=== PATIENT | female | born 1990 | race Caucasian/White ===

== ENCOUNTER 2016-11-13 17:46 | Emergency (ER) | payer MEDICAID ==
--- NOTE | 2016-11-13 18:11 | ER Document Report ---
ED Medical Screen (RME) - General Stated Complaint: CHEST PAIN,DIFFICULTY BREATHING Mode of Arrival: Wheelchair Information source: Patient Notes: Patient presents emergency department reports it feels like an elephant sitting on her chest that started this afternoon approximately 1500. Patient has a history of spontaneous pneumothorax. Patient is currently taking Bactrim for folliculitis. Reports diarrhea since starting to take that. Denies fever vomiting. denies cp, reports only hurts when she takes a deep breath. I have greeted and performed a rapid initial assessment of this patient. A comprehensive ED assessment and evaluation of the patient, analysis of test results and completion of the medical decision making process will be conducted by additional ED providers. TRAVEL OUTSIDE OF THE [place] IN LAST 30 DAYS: No - Related Data Allergies/Adverse Reactions: amoxicillin [Amoxicillin] Allergy (Verified 10/18/15 13:15) hydrocodone bitartrate [From Vicoprofen] Allergy (Verified 10/18/15 13:15) ibuprofen [From Vicoprofen] Allergy (Verified 10/18/15 13:15) latex Allergy (Verified 10/18/15 13:15) Penicillins Allergy (Verified 10/18/15 13:15) acetaminophen [From Tylenol] Adverse Reaction (Verified 10/18/15 13:15) Past Medical History - Social History Family history: Reviewed & Not Pertinent Renal/ Medical History: Reports: Hx Kidney Stones Psychiatric Medical History: Reports: Hx Anxiety, Hx Bipolar Disorder, Hx Depression Traumatic Medical History: Reports: Hx Pneumothorax Past Surgical History: Reports: Hx Section - Immunizations Immunizations up to date: Yes Hx Diphtheria, Pertussis, Tetanus Vaccination: No Physical Exam - Vital signs Vitals: Temp Pulse Resp BP Pulse Ox 98.5 F 84 14 110/73 100 11/13/16 17:52 11/13/16 17:52 11/13/16 17:52 11/13/16 17:52 11/13/16 17:52 Course - Vital Signs Vital signs: Temp Pulse Resp BP Pulse Ox 98.5 F 84 14 110/73 100 11/13/16 17:52 11/13/16 17:52 11/13/16 17:52 11/13/16 17:52 11/13/16 17:52
[2016-11-13] MEDS ORDERED: OXYCODONE-ACETAMINOPHEN 5-325 MG TABLET PO ONE (22:07)
[2016-11-13 22:08] VITALS: BP 116/81
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
== END 2016-11-13 22:12 | disposition home or self-care (01) ==
LOC: ER 17:46
DX: R07.1 Chest pain on breathing (principal); Z87.09 Personal history of other diseases of the respiratory system; Z88.0 Allergy status to penicillin; Z88.5 Allergy status to narcotic agent; Z88.6 Allergy status to analgesic agent; Z91.040 Latex allergy status; Z87.891 Personal history of nicotine dependence
CPT/HCPCS: 71020; 99285

== ENCOUNTER → 2017-01-19 | Outpatient (CLI) | payer MEDICAID ==
--- NOTE | 2017-01-19 11:37 | RADIOLOGY REPORT (SQ) ---
EXAM DESCRIPTION: CT CHEST WITHOUT COMPLETED DATE/TIME: 01/19/2017 11:08 am REASON FOR STUDY: CHEST PAIN R07.89 OTHER CHEST PAIN COMPARISON: Numerous, the most recent 06/15/2016 which was negative. TECHNIQUE: CT scan performed of the chest without intravenous contrast. Images reviewed with lung, soft tissue and bone windows. Reconstructed coronal and sagittal MPR images reviewed. All images st ored on PACS. All CT scanners at this facility use dose modulation, iterative reconstruction, and/or weight based d osing when appropriate to reduce radiation dose to as low as reasonably achievable (ALARA). [facility]: Dose Right [facility]: CareDose [facility]: Dose Right [facility]: Teradose 4D [facility]: [facility] RADIATION DOSE: 2.80 mGy. LIMITATIONS: No technical limitations. FINDINGS: LUNGS AND PLEURA: Stable scarring in the left apex. No effusions. HILAR AND MEDIASTINAL STRUCTURES: No identified masses or abnormal nodes. No obvious aneurysm. HEART AND VASCULAR STRUCTURES: No aneurysm. No pericardial effusion. UPPER ABDOMEN: Bilateral renal calculi. THYROID AND OTHER SOFT TISSUES: No masses. No adenopathy. BONES: No significant finding. HARDWARE: None in the chest. OTHER: No other significant findings. IMPRESSION: No acute findings in the chest. TECHNICAL DOCUMENTATION: JOB ID: [id number] Quality ID # [id number]: Final reports with documentation of one or more dose reduction techniques (e.g., Au tomated exposure control, adjustment of the mA and/or kV according to patient size, use of iterative reconstruction technique) 2010 [employer]- All Rights Reserved
== END ==
LOC: RAD 10:55
PROVIDERS: ATTEND Nurse Practitioner Family
DX: R07.89 Other chest pain (principal)
CPT/HCPCS: 71250

== ENCOUNTER 2020-04-06 12:23 | Emergency (ER) | payer OTHER, MEDICAID ==
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
[2020-04-06 13:11] LABS: APPEARANCE,URINE SLIGHTLY-CLOUDY; BILIRUBIN,URINE NEGATIVE (NEGATIVE); COLOR,URINE YELLOW; GLUCOSE, URINE NEGATIVE (NEGATIVE); KETONES,URINE TRACE mg/dL (NEGATIVE); LEUKOCYTE ESTERASE,URINE NEGATIVE (NEGATIVE); NITRITE,URINE NEGATIVE (NEGATIVE); PROTEIN,URINE 30 mg/dL (NEGATIVE); URINE SPECIFIC GRAVITY 1.025
[2020-04-06 13:22] LABS: URINE AMPHETAMINES SCREEN NEGATIVE; URINE BARBITURATES SCREEN NEGATIVE; URINE BENZODIAZEPINES SCREEN NEGATIVE; URINE COCAINE SCREEN NEGATIVE; URINE MARIJUANA (THC) SCREEN NEGATIVE; URINE METHADONE SCREEN NEGATIVE; URINE PHENCYCLIDINE SCREEN NEGATIVE
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
[2020-04-06] MEDS ORDERED: ONDANSETRON 4 MG TAB.RAPDIS PO ONE (13:51)
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
[2020-04-06 14:52] VITALS: BP 112/80
== END 2020-04-06 14:51 | disposition home or self-care (01) ==
LOC: ER 12:23
DX: S16.1XXA Strain of muscle, fascia and tendon at neck level, initial encounter (principal); S80.02XA Contusion of left knee, initial encounter; S70.01XA Contusion of right hip, initial encounter; R51 Headache; M54.5 Low back pain; R11.2 Nausea with vomiting, unspecified; V49.60XA Unspecified car occupant injured in collision with unspecified motor vehicles in traffic accident, initial encounter; F32.9 Major depressive disorder, single episode, unspecified; F41.9 Anxiety disorder, unspecified; Z79.899 Other long term (current) drug therapy; Z79.3 Long term (current) use of hormonal contraceptives; Z87.891 Personal history of nicotine dependence; Z88.0 Allergy status to penicillin; Z88.6 Allergy status to analgesic agent; Z88.5 Allergy status to narcotic agent; Z91.040 Latex allergy status
CPT/HCPCS: 99285; 81025; 81001; 80307; 71046; 73502; 72110; 70450; 72125; S0119